=== PATIENT | female | born 1970 | race Caucasian/White ===

== ENCOUNTER 2019-04-26 20:48 | Emergency (ER) | payer SELFPAY ==
[2019-04-26 20:56] VITALS: BP 143/71; PULSE 102; TEMP 99.2; BMI 23.3
[2019-04-26] MEDS ORDERED: ONDANSETRON 4 MG/2 ML VIAL IVPUSH ONE (22:02)
[2019-04-26] MEDS ORDERED: SODIUM CHLORIDE 1,000 ML IV STA (22:02)
[2019-04-26] MEDS ORDERED: ACETAMINOPHEN 1000 MG/100 ML VIAL (NON FORMULARY) IVPB ONE (22:02)
[2019-04-26] MEDS ORDERED: ONDANSETRON 4 MG/2 ML VIAL ONE (22:23)
[2019-04-26] MEDS ORDERED: ACETAMINOPHEN INJECTION 100 ML IVPB ONE (22:23)
[2019-04-26 22:29] LABS: BASO % 0.4 % (0-2.0); EOS % 0.1 % (0-4.5); HCG,QUALITATIVE URINE Negative; HEMATOCRIT 34.6 % (32.4-45.2); HEMOGLOBIN 12.2 GM/dL (10.7-15.3); LYMPH % 14.1 % (8-40); MCH 28.5 pg (25.7-33.7); MCHC 35.2 g/dl (32.0-36.0); MEAN PLT VOLUME 8.9 fl (7.5-11.1); MONO % 9.4 % (3.8-10.2); PH,URINE 5.5 (5.0-8.0); PLATELET COUNT 220 K/MM3 (134-434); RBC 4.27 M/mm3 (3.60-5.2); RDW 13.5 % (11.6-15.6); URINE APPEARANCE CLOUDY; URINE BILIRUBIN NEGATIVE (NEGATIVE); URINE COLOR YELLOW; URINE GLUCOSE (UA) 3+ (NEGATIVE); URINE KETONE 3+ (NEGATIVE); URINE LEUK ESTERASE NEGATIVE (NEGATIVE); URINE NITRITE POSITIVE (NEGATIVE); URINE PROTEIN 1+ (NEGATIVE); URINE UROBILINOGEN 0.2 mg/dL (0.2-1.0); WHITE BLOOD COUNT 5.5 K/mm3 (4.0-10.0)
[2019-04-26 22:33] LABS: EPI CELLS 1.5 /HPF (0-5/HPF); URINE RBC 4.9 /hpf (0-4)
[2019-04-26 22:34] LABS: HYALINE CASTS 4.12 /lpf (0-8); URINE BACTERIA 4513.2 /hpf (NEGATIVE)
[2019-04-26 22:53] LABS: ALBUMIN 3.4 g/dl (3.4-5.0); BILIRUBIN,TOTAL 0.5 mg/dL (0.2-1); BLOOD UREA NITROGEN 7.5 mg/dL (7-18); CALCIUM 8.7 mg/dL (8.5-10.1); CREATININE 0.7 mg/dL (0.55-1.3); POTASSIUM 3.9 mmol/L (3.5-5.1); TOT PROT 7.3 g/dl (6.4-8.2)
[2019-04-27] MEDS ORDERED: SULFAMETHOXAZOLE/TRIMETHOPRIM 800MG/160MG D.S. TABLET PO ONE (00:57)
--- NOTE | 2019-04-27 01:33 | PDOC ---
History of Present Illness - General Chief Complaint: Nausea/Vomiting Stated Complaint: VOMITING & PAIN Time Seen by Provider: 04/26/19 21:54 History Source: Patient Exam Limitations: No Limitations Past History - Past Medical History Allergies/Adverse Reactions: Allergies Allergy/AdvReac Type Severity Reaction Status Date / Time No Known Allergies Allergy Verified 04/26/19 20:56 Home Medications: Ambulatory Orders Glipizide [Glipizide Xl] 04/26/19 Sulfamethoxazole/Trimethoprim [Bactrim Ds -] 1 tab PO BID #28 tablet 04/27/19 COPD: No Diabetes: Yes - Immunization History Immunization Up to Date: Yes - Suicide/Smoking/Psychosocial Hx Smoking History: Never smoked *Physical Exam - Vital Signs Last Vital Signs Temp Pulse Resp BP Pulse Ox 99.2 F 102 H 18 143/71 99 04/26/19 20:54 04/26/19 20:54 04/26/19 20:54 04/26/19 20:54 04/26/19 20:54 - Physical Exam General Appearance: No: Apparent Distress Respiratory/Chest: positive: Lungs Clear, Normal Breath Sounds. negative: Respiratory Distress Cardiovascular: positive: Regular Rhythm, Regular Rate, S1, S2. negative: Murmur Gastrointestinal/Abdominal: positive: Tender (along LLQ), Soft. negative: Guarding, Rebound, Hernia, Mass Musculoskeletal: negative: CVA Tenderness Integumentary: positive: Normal Color Neurologic: positive: Alert, Normal Mood/Affect ED Treatment Course - LABORATORY CBC & Chemistry Diagram: 04/26/19 22:20 04/26/19 22:20 - ADDITIONAL ORDERS Additional order review: Laboratory Results 04/26/19 04/26/19 04/26/19 22:35 22:20 22:20 Sodium 129 L Potassium 3.9 Chloride 95 L Carbon Dioxide 28 Anion Gap 5 L BUN 7.5 Creatinine 0.7 Est GFR (CKD-EPI)AfAm 118.74 Est GFR (CKD-EPI)NonAf 102.45 POC Glucometer 319 Random Glucose 334 H* Calcium 8.7 Total Bilirubin 0.5 AST 24 ALT 32 Alkaline Phosphatase 172 H Total Protein 7.3 Albumin 3.4 Urine Color Yellow Urine Appearance Cloudy Urine pH 5.5 Ur Specific [place] 1.035 Urine Protein 1+ H Urine Glucose (UA) 3+ H Urine Ketones 3+ H Urine Blood Trace Urine Nitrite Positive H Urine Bilirubin Negative Urine Urobilinogen 0.2 Ur Leukocyte Esterase Negative Urine WBC (Auto) 46.0 Urine RBC (Auto) 4.9 Urine Casts (Auto) 4.12 U Pathogenic Cast Auto None U Epithel Cells (Auto) 1.5 U Sm Round Cell (Auto) None Urine Crystals (Auto) None Urine Bacteria (Auto) 4513.2 Urine Yeast (Auto) None Urine HCG, Qual Negative 04/26/19 04/26/19 22:35 22:20 RBC 4.27 MCV 81.0 MCHC 35.2 RDW 13.5 MPV 8.9 Neutrophils % 76.0 Lymphocytes % 14.1 Monocytes % 9.4 Eosinophils % 0.1 Basophils % 0.4 POC Glucometer 319 - RADIOLOGY Radiology Studies Ordered: Category Date Time Status ABDOMEN & PELVIS CT WITH CONTR [CT] Stat CT Scan 04/27/19 00:17 Taken - Medications Given in the ED: ED Medications Discontinued Medications Generic Name Dose Route Start Last Admin Trade Name Freq PRN Reason Stop Dose Admin Acetaminophen 1,000 mg 04/26/19 22:02 04/26/19 22:15 Ofirmev Injection - IVPB 04/26/19 22:03 1,000 mg ONCE ONE Administration Sodium Chloride 1,000 mls @ 1,000 mls/hr 04/26/19 22:02 04/26/19 22:15 Normal Saline - IV 04/26/19 23:01 1,000 mls/hr ASDIR STA Administration Ondansetron HCl 4 mg 04/26/19 22:02 04/26/19 22:15 Zofran Injection IVPUSH 04/26/19 22:03 4 mg ONCE ONE Administration Medical Decision Making - Medical Decision Making 49 y/o F hx of DM presents with periumbilical abd pain x 5 days along with subjective fever and NBNB emesis. Took Tylenol around 11-12 PM. Denies URI sxs, sob, cp, diarrhea, urinary complaints. Denies prior abdominal surgeries. LNMP April 10 CT A/P shows evidence of pyelonephritis; though concern raised for possible cyst vs abscess on CT scan, given patient afebrile, with no leukocytosis and appears well, less suspicious for abscess and likely cyst Urine culture was collected and patient given Ceftriaxone Labs also noted for elevated glucose, no AG noted, given 1L of NS fluids Corrected Na is 133 Stable for dc 04/27/19 01:28 *DC/Admit/Observation/Transfer Diagnosis at time of Disposition: Pyelonephritis - Discharge Dispostion Disposition: HOME Condition at time of disposition: Stable Decision to Admit order: No - Prescriptions Prescriptions: Sulfamethoxazole/Trimethoprim [Bactrim Ds -] 1 tab PO BID #28 tablet - Referrals Referrals: Shira Saba DO [Primary Care Provider] - 2 Days - Patient Instructions Printed Discharge Instructions: DI for Kidney Infection Additional Instructions: Thank you for choosing [facility]. It was a pleasure taking care of you. You were noted to have kidney infection Take antibiotics as prescribed Keep an eye on your sugar level as well Drink plenty of water (at least 2-3L daily) Follow-up with your doctor in 2 days Return to the Emergency Department if your symptoms worsen or persist or have other concerning symptoms. - Post Discharge Activity
[2019-04-27] MEDS ORDERED: CEFTRIAXONE 1 GM in DEXTROSE 5%-WATER - 100 ML IVPB ONE (01:34)
[2019-04-27] MEDS ORDERED: CEFTRIAXONE 1 GM/50 ML BAG ONE (01:41)
== END 2019-04-27 02:22 | disposition home or self-care (01) ==
LOC: JER 20:48
PROC: 3E03329 Introduction of Other Anti-infective into Peripheral Vein, Percutaneous Approach (ICD-10-PCS; principal; 2019-04-26)
PROC: 3E033NZ Introduction of Analgesics, Hypnotics, Sedatives into Peripheral Vein, Percutaneous Approach (ICD-10-PCS; 2019-04-26)
PROC: 3E033GC Introduction of Other Therapeutic Substance into Peripheral Vein, Percutaneous Approach (ICD-10-PCS; 2019-04-26)
DX: N12 Tubulo-interstitial nephritis, not specified as acute or chronic (principal); E11.9 Type 2 diabetes mellitus without complications; Z79.84 Long term (current) use of oral hypoglycemic drugs
CPT/HCPCS: 36415; 74177-TC; 80053; 81003; 82962; 84703; 85025; 87086; 87186; 99282-25; J0131; J7030